=== PATIENT | female | born 1945 | race Caucasian/White ===

== ENCOUNTER 2017-12-30 08:46 | Emergency (ER) | payer MEDICARE ==
[~2017-12-30] VITALS: Ht 162.6 cm; Wt 52.0 kg
[2017-12-30 08:47] VITALS: BP 190/94
[2017-12-30] MEDS ORDERED: MULT-326 PO (09:08)
[2017-12-30] MEDS ORDERED: BACITRACIN ZINC OINT 500U/GM, 0.9 GM ONE (09:11)
[2017-12-30] MEDS ORDERED: DIPH,PERTUSS(ACELL),TET VAC/PF 0.5 ML IM-VACC ONE ×2 (09:59→10:30)
== END 2017-12-30 10:12 | disposition home or self-care (01) ==
LOC: ED 09:52
DX: S01.01XA Laceration without foreign body of scalp, initial encounter (principal); I10 Essential (primary) hypertension; W19.XXXA Unspecified fall, initial encounter; Y93.89 Activity, other specified; Y92.89 Other specified places as the place of occurrence of the external cause; Y99.8 Other external cause status
CPT/HCPCS: 70450; 90471; 90715; 99284

== ENCOUNTER 2021-02-26 08:08 | Emergency (ER) | payer MEDICARE, OTHER ==
[~2021-02-26] VITALS: Ht 162.6 cm; Wt 54.5 kg
[~2021-02-26 08:08] MED LIST: ACET325T26 PO; AMLO-150 PO; ASPI81TA45 PO; CHOL10003 PO; METO25TA35 PO; MULT-326 PO
--- NOTE | 2021-02-26 08:27 | NUR ---
PER PATIENT " R. LEG HURTS WHEN I GET UP AND WALK (FROM HIP/GROIN DOWN LEG)" THINKS IT BEGAN THIS MONTH AFTER THE SHOT FOR [employer] AFTER HAVING A FALL (FELL OFF THE TOILET ONTO THE DOOR)SHE IS SUPPOSE TO BE ON BP MEDS, "HER DR QUIT AND SHE CANT GET A REFILL." HAS AN APPT IN JUN. ASKING ABOUT GETTING A SHOT OF PADERMIL. LASHA PAYNE AT BEDSIDE FOR EVALUATION. VSS. JOSHI.
--- NOTE | 2021-02-26 08:51 | NUR ---
PT TO CT.
[2021-02-26] MEDS ORDERED: ONDANSETRON 2MG/ML, 2ML ONE (08:52)
[2021-02-26] MEDS ORDERED: MORPHINE SULFATE 4 MG/ML, 1ML ONE (08:52)
[2021-02-26] MEDS ORDERED: MORPHINE SULFATE 4 MG/ML, 1ML IVPush PRN (09:00)
[2021-02-26] MEDS ORDERED: SODIUM CHLORIDE FLUSH 10ML SYR IVF ONE (09:00)
[2021-02-26] MEDS ORDERED: ONDANSETRON 2MG/ML, 2ML IVPush ONE (09:00)
[2021-02-26 09:30] LABS: BASOPHILS % (AUTO) 1 % (0-1); EOSINOPHILS % (AUTO) 3 % (1-7); LYMPHOCYTES % (AUTO) 26 % (22-44); MEAN CORPUSCULAR HEMOGLOBIN 32.3 pg (27.0-34.8); MEAN CORPUSCULAR HGB CONC 32.8 g/dL (32.4-35.8); MEAN PLATELET VOLUME 9.8 fL (7.4-10.4); MONOCYTES % (AUTO) 6 % (2-9); NEUTROPHILS % (AUTO) 64 % (42-75); PLATELET COUNT 192 x10^3/uL (130-400); RED CELL DISTRIBUTION WIDTH 13.7 % (9.6-15.2)
[2021-02-26 09:36] LABS: ALBUMIN 3.4 g/dL (3.4-5.0); ANION GAP 7 mmol/L (5-15); CALCIUM 8.3 mg/dL (8.5-10.1); CHLORIDE 108 mmol/L (98-107)
[2021-02-26 09:38] LABS: MD NO
--- NOTE | 2021-02-26 09:41 | NUR ---
PT TO [facility] AND BACK TO BED. VSS.
[2021-02-26 09:48] LABS: MICROSCOPIC INDICATED
[2021-02-26 10:42] VITALS: BP 182/60
== END 2021-02-26 11:01 | disposition home or self-care (01) ==
LOC: ED 09:45
DX: S76.011A Strain of muscle, fascia and tendon of right hip, initial encounter (principal); Z76.0 Encounter for issue of repeat prescription; I10 Essential (primary) hypertension; W01.0XXA Fall on same level from slipping, tripping and stumbling without subsequent striking against object, initial encounter; Y93.89 Activity, other specified; Y92.009 Unspecified place in unspecified non-institutional (private) residence as the place of occurrence of the external cause; Y99.8 Other external cause status
CPT/HCPCS: 36415; 72190; 80048; 81001; 82040; 85025; 87086; 96374; 96375; 99284; J2270; J2405